=== PATIENT | female | born 1980 | race Caucasian/White ===

== ENCOUNTER 2019-05-04 17:21 | Emergency (ER) | payer OTHER ==
[~2019-05-04] VITALS: Ht 162.6 cm; Wt 63.5 kg
[~2019-05-04 17:21] MED LIST: NORCO 7.5-3251 EACH PO; NOVOLOG100 UNIT/1 SQ; ZOFRAN ODT4 MG PO; ZPAK PO
[2019-05-04] MEDS ORDERED: NAPROSYN500 MG PO (18:58)
[2019-05-04] MEDS ORDERED: TRAMADOL 50 MG50 MG PO (18:58)
[2019-05-04] MEDS ORDERED: HUMALOG100 UNIT/1 (19:21)
[2019-05-04 20:13] VITALS: BP 117/58
== END 2019-05-04 20:15 | disposition home or self-care (01) ==
LOC: ER 17:21
DX: S93.492A Sprain of other ligament of left ankle, initial encounter (principal); S93.692A Other sprain of left foot, initial encounter; S80.12XA Contusion of left lower leg, initial encounter; F17.210 Nicotine dependence, cigarettes, uncomplicated; E11.9 Type 2 diabetes mellitus without complications; G43.909 Migraine, unspecified, not intractable, without status migrainosus; Z79.4 Long term (current) use of insulin; Z88.6 Allergy status to analgesic agent; Z88.8 Allergy status to other drugs, medicaments and biological substances; Z98.51 Tubal ligation status; W10.8XXA Fall (on) (from) other stairs and steps, initial encounter; Y93.89 Activity, other specified; Y92.89 Other specified places as the place of occurrence of the external cause; Y99.9 Unspecified external cause status